=== PATIENT | male | born 1960 | race Caucasian/White ===

== ENCOUNTER → 2022-05-14 10:18 | Outpatient (CLI) | payer OTHER, SELFPAY ==
[2022-05-14 13:01] LABS: COVID19 -Nasal RAPID Negative (Negative)
== END ==
PROVIDERS: Visit Provider Surgery
DX: Z20.822 Contact with and (suspected) exposure to COVID-19 (principal); Z01.812 Encounter for preprocedural laboratory examination
CPT/HCPCS: 87635; C9803

== ENCOUNTER 2022-05-15 06:34 | Day surgery (SDC) | payer OTHER, SELFPAY ==
[2022-05-08 15:08] VITALS: BMI 18.6
[2022-05-15 07:23] VITALS: BP 135/73; PULSE 87; RESP 20; TEMP 36.7; O2SAT 97; BMI 18.6
[2022-05-15] MEDS: LACTATED RINGERS 1,000 ML 42 ML IV (07:39)
--- NOTE | 2022-05-15 07:50 | PM.HP.1 ---
History of Present Illness History of Present Illness Date Patient Seen: 05/15/22 Time Patient Seen: 07:51 Chief complaint: SDC Narrative: Robin Mills is a 62-year-old man who has had a large right inguinal hernia for 7 years. It seems to protrude whenever he stands up and reduces when he lies down. It is bothering him. See the office note from March for details. Patient History Medical History (Updated 05/08/22 @ 15:10 by Eugenie Sutherland RN) Anxiety Asthma Easy bruisability Pneumonia Surgical History (Updated 05/08/22 @ 15:10 by Eugenie Sutherland RN) History of surgical removal of ganglion cyst Hx of hernia repair (1971) Family & Social History Social History: household members spouse Tobacco & Substance use: Tobacco type cigarettes Smoking Status Current every day smoker Smoking packs per day 1 alcohol intake current alcohol intake frequency 3 or more drinks per day Substance Use Type does not use Meds Home Medications and Allergies Home Medications Medication Instructions Recorded Confirmed Type No Known Home Medications 09/18/18 05/15/22 History Allergies Allergy/AdvReac Type Severity Reaction Status Date / Time No Known Drug Allergies Allergy Verified 05/15/22 07:22 Exam Vital Signs (past 8 hours): - 05/15/22 07:23 Temperature 98.1 F Pulse Rate 87 Respiratory Rate 20 Blood Pressure 135/73 Pulse Oximetry 97 Oxygen Delivery Method Room Air Oxygen Delivery Method Room Air Narrative Exam Narrative: Large reducible right inguinal hernia No left inguinal hernia Assessment & Plan Assessment and plan (1) Right inguinal hernia: Status: Acute Plan Proceed with open right inguinal hernia repair with mesh. Time Spent With Patient Critical Care time: I spent a total of [] minutes of critical care time on this patient's care today; this time is exclusive of procedural time.
[2022-05-15] MEDS: CEFAZOLIN 2 GM/20 ML SYRINGE IV (08:08)
[2022-05-15] MEDS: LIDOCAINE 1% W/EPI 20 ML INJ (08:21)
[2022-05-15] MEDS: BUPIVACAINE 0.5% (PF) VIAL 30 ML INJ (08:22)
--- NOTE | 2022-05-15 08:25 | SUR.OPER ---
Supine on padded OR bed, head on pillow, arms secured on padded arm boards at <90 degrees abduction, legs uncrossed, safety belt at thigh, tape over blanket over lower legs. Gel pad placed under bilateral heels.
[2022-05-15 09:28] VITALS: BP 115/63; PULSE 77; RESP 16; TEMP 36.8; O2SAT 98
[2022-05-15 09:32] VITALS: BP 112/72; PULSE 75; RESP 16; TEMP 36.2; O2SAT 98
[2022-05-15] MEDS: OXYCODONE/ACETAMINOPHEN 5/325 TABLET 1 TAB PO (09:35)
--- NOTE | 2022-05-15 09:35 | PM.OP.1 ---
Operative Date/Time/Diagnoses Date of procedure: 05/15/22 Time of procedure: 09:36 Pre-op diagnosis: Right inguinal hernia Post-op diagnosis: same Procedure & Clinicians Procedure: Open right inguinal hernia repair with mesh Same procedure as scheduled: Yes Surgeon: Severiano Herman Anesthesia Type: General Operative Notes Procedure in detail: Preoperative antibiotic was administered. The patient was brought to the operating room and placed on the table in supine position general anesthesia was induced. The right groin was prepped and draped in the normal fashion and a time-out was performed. Roughly 10 mL of local anesthetic were injected into the skin and subcutaneous adipose tissue over the right groin. A 6 cm incision was made over the right inguinal canal. Dissection was carried down through the subcutaneous adipose tissue. A bridging vein was cauterized. We exposed the external oblique aponeurosis in the direction of the fibers. Additional local was injected deep to the aponeurosis. A 15 blade scalpel was used to ernesto the external oblique aponeurosis. Metzenbaum scissors were used to carefully open the aponeurosis in the direction of the fibers taking care not to injure the underlying ilioinguinal nerve which was well seen and protected. We completely exposed the inguinal canal. The cord was dissected free from the inguinal ligament and floor of the inguinal canal and the external oblique aponeurosis was dissected off of the internal oblique taking care not to injure the hypogastric nerve. We encircled the cord with a [place] drain for retraction. There was a large indirect hernia sac which was dissected off of the cord structures. We then fashioned a piece of polypropylene mesh to fit the inguinal canal floor. The mesh was secured with multiple interrupted 3-0 Prolene sutures to the pubic tubercle and shelving edge of the inguinal ligament as well as to the conjoint tendon medially. We overlapped the tails to recreate an internal ring and secured the medial tail to the inguinal ligament with additional sutures. We injected some more local into the fatty tissue in the inguinal canal and cord. Finally, we removed the [place] drain and closed the external oblique fascia with a running 3-0 Vicryl suture. Skin was closed with interrupted 3-0 Vicryl dermal sutures and a running 4 Monocryl subcuticular stitch. EBL 5 mL The patient was awakened and brought to recovery room. Post-operative Condition: stable Disposition: PACU
[2022-05-15 09:40] VITALS: BP 117/65; PULSE 75; RESP 16; O2SAT 97
[2022-05-15 09:42] VITALS: BP 120/65; PULSE 75; RESP 18; TEMP 36.3; O2SAT 98
[2022-05-15 09:48] VITALS: BP 125/69; PULSE 74; RESP 14; TEMP 36.2; O2SAT 98
== END 2022-05-15 10:15 | disposition home or self-care (01) ==
PROVIDERS: Referring Provider Surgery; Visit Provider Surgery
PROC: (CPT 49505; principal; 2022-05-15 07:45)
DX: K40.90 Unilateral inguinal hernia, without obstruction or gangrene, not specified as recurrent (principal); F17.210 Nicotine dependence, cigarettes, uncomplicated
CPT/HCPCS: 49505; J0690; J1100; J1885; J2250; J2405; J2704; J3010

== ENCOUNTER → 2023-08-20 11:02 | Outpatient (CLI) | payer MEDICARE, SELFPAY ==
[2023-08-21 13:36] LABS: Fecal Immunochemical Test Negative (Negative)
== END ==
PROVIDERS: PCP Family Medicine; Referring Provider Family Medicine; Visit Provider Family Medicine
DX: Z00.00 Encounter for general adult medical examination without abnormal findings (principal); Z12.11 Encounter for screening for malignant neoplasm of colon
CPT/HCPCS: 82274

== ENCOUNTER → 2023-08-21 10:24 | Outpatient (CLI) | payer MEDICARE, SELFPAY ==
[2023-08-21 12:28] LABS: Add Manual Diff / Slide Review NO; Basophils Absolute Auto 100 /uL (0-100); Basophils Percent Auto 1.3 % (0-2); Eosinophils Absolute Auto 300 /uL (0-450); Eosinophils Percent Auto 4.7 % (2-4); Hematocrit 43.3 % (41-53); Hemoglobin 14.7 g/dL (13.5-17.5); Lymphocytes Absolute Auto 1900 /uL (1100-4500); Mean Corpuscular HGB Conc 33.9 % (30-36); Mean Corpuscular Hemoglobin 32.4 PG (26-34); Mean Corpuscular Volume 95.7 fL (80-100); Monocytes Absolute Auto 600 /uL (0-900); Neutrophils Absolute Auto 3900 /uL (1500-7000); Platelet Count 267 X10^3/uL (150-400); Red Blood Cell Count 4.53 X10^6/uL (4.5-5.9); White Blood Cell Count 6.9 X10^3/uL (4.5-11.0)
[2023-08-21 12:38] LABS: Hemoglobin A1C% w Est Avg Glu 4.9 % (4.0-6.0)
[2023-08-21 12:46] LABS: Alanine Aminotransferase 13 IU/L (<50); Albumin 4.1 g/dL (3.5-5.0); Albumin Globulin Ratio 1.2 (1.0-2.8); Alkaline Phosphatase 40 U/L (38-126); Aspartate Aminotransferase 25 IU/L (17-59); BUN Creatinine Ratio 13.3 (6-22); Bilirubin Total 0.9 mg/dL (0.2-1.3); Blood Urea Nitrogen 11 mg/dL (9-20); Calcium 9.6 mg/dL (8.4-10.2); Carbon Dioxide 30 mmol/L (22-32); Chloride 103 mmol/L (98-107); Cholesterol 187 mg/dL (140-199); Estimated Glomerular Filt Rate > 60 mL/min (>60); Globulin 3.3 g/dL (1.7-4.1); Glucose 89 mg/dL (80-110); HDL Cholesterol 60 mg/dL (40-60); HEMOLYSIS < 15 (0-50); LDL Cholesterol Calculated 112 mg/dL (<100); Potassium 4.6 mmol/L (3.4-5.1); Sodium 139 mmol/L (137-145); Total Protein 7.4 g/dL (6.3-8.2); Triglycerides 77 mg/dL (35-150)
== END ==
PROVIDERS: PCP Family Medicine; Referring Provider Family Medicine; Visit Provider Family Medicine
DX: F17.200 Nicotine dependence, unspecified, uncomplicated (principal); F41.9 Anxiety disorder, unspecified; Z00.00 Encounter for general adult medical examination without abnormal findings; J45.909 Unspecified asthma, uncomplicated
CPT/HCPCS: 36415; 80053; 80061; 83036; 85025

== ENCOUNTER → 2023-08-27 08:41 | Outpatient (CLI) | payer MEDICARE, SELFPAY ==
--- NOTE | 2023-08-27 08:42 | DI.US.S_ITS ---
PROCEDURE: US ABD AORTA ANEURYSM SCREEN INDICATIONS: HISTORY SMOKING TECHNIQUE: Real-time scanning was performed of the aorta and proximal common iliac arteries, with image documentation. COMPARISON: None. FINDINGS: Aorta: Abdominal aorta is normal in caliber throughout its length. Iliacs: Proximal common iliac arteries are normal in caliber. IMPRESSION: No infrarenal aortic aneurysm. Dictated by: Kiet Oro M.D. on 08/27/2023 at 11:21 Approved by: Kiet Oro M.D. on 08/27/2023 at 11:22
--- NOTE | 2023-08-27 08:42 | DI.CT.S_ITS ---
PROCEDURE: CT LUNG LOW DOSE SCREENING INDICATIONS: lung cancer screening TECHNIQUE: Noncontrast 2.0-2.5 mm thick sections acquired from the pulmonary apices to the posterior costophrenic angles. 7 mm thick axial MIP, and 5 mm coronal and sagittal reformats were then acquired. A low radiation dose technique was utilized. COMPARISON: None. FINDINGS: Image quality: Good Lungs and pleura: Emphysema with particularly large blebs at the apex. Baseline lung cancer screening without suspicious nodule identified. No consolidation or pleural effusion. There are areas of suspected thick scarring at the apices. Subpleural nodularity is also seen in the right upper lobe and micro nodules in the left upper lobe. None measure over 6 mm. Mediastinum, heart, and esophagus: No hiatal hernia. Normal heart size. No pathologic lymph nodes by size criteria. Chest wall and thyroid: Unremarkable Upper abdomen: No gross abnormality on this noncontrast low-dose CT. Bones: There are degenerative changes. IMPRESSION: Lung RADS 2: Continue annual screening. Other findings as above. Dictated by: Butch Loera M.D. on 08/27/2023 at 9:04 Approved by: Butch Loera M.D. on 08/27/2023 at 9:08
== END ==
PROVIDERS: PCP Family Medicine; Referring Provider Family Medicine; Visit Provider Family Medicine
DX: F17.200 Nicotine dependence, unspecified, uncomplicated (principal); J45.909 Unspecified asthma, uncomplicated; Z12.2 Encounter for screening for malignant neoplasm of respiratory organs; F17.210 Nicotine dependence, cigarettes, uncomplicated
CPT/HCPCS: 71271; 76706

== ENCOUNTER → 2024-10-01 11:37 | Outpatient (CLI) | payer MEDICARE, SELFPAY ==
[2024-10-02 11:11] LABS: Fecal Immunochemical Test Negative (Negative)
== END ==
PROVIDERS: PCP Family Medicine; Referring Provider Specialist; Visit Provider Specialist
DX: Z12.11 Encounter for screening for malignant neoplasm of colon (principal)
CPT/HCPCS: 82274

== ENCOUNTER → 2024-10-05 09:14 | Outpatient (CLI) | payer MEDICARE, SELFPAY ==
--- NOTE | 2024-10-05 09:15 | DI.CT.S_ITS ---
PROCEDURE: CT LUNG LOW DOSE SCREENING INDICATIONS: 50 pack-year smoking hx TECHNIQUE: Noncontrast 2.0-2.5 mm thick sections acquired from the pulmonary apices to the posterior costophrenic angles. 7 mm thick axial MIP, and 5 mm coronal and sagittal reformats were then acquired. For radiation dose reduction, the following was used: automated exposure control, adjustment of mA and/or kV according to patient size. COMPARISON: [facility], CT, CT LUNG LOW DOSE SCREENING, 08/27/2023, 8:46. FINDINGS: Image quality: Diagnostic Lungs and pleura: Emphysematous changes, with large bulla at the apices. No suspicious pulmonary nodules. Small Bochdalek's hernias. No pleural effusions. Scattered scarring at the apices also again seen similar to prior. Similar left lung apex nodule image 40 about 4 mm. Mediastinum, heart, and esophagus: No hiatal hernia. Normal heart size. No pathologic lymph nodes by size criteria. Chest wall and thyroid: Unremarkable Upper abdomen: Unremarkable on these noncontrast low-dose images. A subcentimeter lesion at the segment 7 of the liver is similar to prior, too small to characterize. Bones: Degenerative osseous changes. No acute or suspicious osseous finding. IMPRESSION: No suspicious pulmonary nodules. LUNG-RADS 2; continued annual screening, if eligible. Other findings above. Dictated by: Butch Loera M.D. on 10/05/2024 at 16:49 Approved by: Butch Loera M.D. on 10/05/2024 at 16:52
[2024-10-05 10:13] LABS: Add Manual Diff / Slide Review NO; Basophils Absolute Auto 200 /uL (0-100); Basophils Percent Auto 2.6 % (0-2); Eosinophils Absolute Auto 200 /uL (0-450); Hematocrit 45.5 % (41-53); Hemoglobin 15.4 g/dL (13.5-17.5); Lymphocytes Absolute Auto 2000 /uL (1100-4500); Lymphocytes Percent Auto 31.3 % (25-40); Mean Corpuscular HGB Conc 33.9 % (30-36); Mean Corpuscular Hemoglobin 32.5 PG (26-34); Mean Corpuscular Volume 96.1 fL (80-100); Monocytes Absolute Auto 600 /uL (0-900); Monocytes Percent Auto 9.7 % (3-14); Neutrophils Absolute Auto 3400 /uL (1500-7000); Neutrophils Percent Auto 53.4 % (50-75); Platelet Count 299 X10^3/uL (150-400); Red Blood Cell Count 4.74 X10^6/uL (4.5-5.9); Red Cell Distribution Width 13.8 % (11.6-14.8); White Blood Cell Count 6.3 X10^3/uL (4.5-11.0)
[2024-10-05 10:34] LABS: Alanine Aminotransferase 15 IU/L (<50); Albumin 4.3 g/dL (3.5-5.0); Albumin Globulin Ratio 1.4 (1.0-2.8); Alkaline Phosphatase 43 U/L (38-126); Aspartate Aminotransferase 29 IU/L (17-59); BUN Creatinine Ratio 11.2 (6-22); Bilirubin Total 0.8 mg/dL (0.2-1.3); Blood Urea Nitrogen 10 mg/dL (9-20); Calcium 9.9 mg/dL (8.4-10.2); Carbon Dioxide 30 mmol/L (22-32); Chloride 103 mmol/L (98-107); Cholesterol 186 mg/dL (140-199); Estimated Glomerular Filt Rate > 60 mL/min (>60); Glucose 92 mg/dL (80-110); HDL Cholesterol 72 mg/dL (40-60); HEMOLYSIS < 15 (0-50); LDL Cholesterol Calculated 98 mg/dL (<100); Potassium 4.8 mmol/L (3.4-5.1); Sodium 140 mmol/L (137-145); Total Protein 7.3 g/dL (6.3-8.2); Triglycerides 78 mg/dL (35-150)
[2024-10-05 11:05] LABS: Prostate Specific Antigen Scrn 10.2 ng/mL (0.1-4.0)
[2024-10-05 16:11] LABS: Hep C Virus Ab w/Reflex Quant NEGATIVE s/c (NEGATIVE)
== END ==
LOC: CT 09:14
PROVIDERS: PCP Family Medicine; Referring Provider Family Medicine; Visit Provider Family Medicine
DX: Z12.5 Encounter for screening for malignant neoplasm of prostate (principal); Z13.228 Encounter for screening for other metabolic disorders; Z13.220 Encounter for screening for lipoid disorders; Z11.59 Encounter for screening for other viral diseases; J43.9 Emphysema, unspecified; F17.210 Nicotine dependence, cigarettes, uncomplicated
CPT/HCPCS: 36415; 71271; 80053; 80061; 85025; 86803; G0103

== ENCOUNTER → 2024-11-25 10:21 | Outpatient (CLI) | payer MEDICARE, SELFPAY ==
[2024-11-25 13:24] LABS: Prostate Specific Antigen Scrn 12.5 ng/mL (0.1-4.0)
== END ==
PROVIDERS: PCP Family Medicine; Referring Provider Family Medicine; Visit Provider Family Medicine
DX: R97.20 Elevated prostate specific antigen [PSA] (principal)
CPT/HCPCS: 36415; G0103

== ENCOUNTER → 2024-12-25 10:42 | Outpatient (CLI) | payer MEDICARE, SELFPAY ==
--- NOTE | 2024-12-25 10:43 | DI.MRI.S_ITS ---
PROCEDURE: MR PELIS WO/W CON INDICATIONS: 64 y/o M w/ elevated PSA, please eval TECHNIQUE: Coronal HASTE, axial T1 FSE with fat saturation, 3-plane nonbreath-hold T2 FSE. After the administration of contrast, dynamic axial, delayed axial and coronal VIBE or 2-D FLASH with fat saturation through the pelvis. Diffusion weighted imaging and ADC was performed. COMPARISON: None. FINDINGS: Image quality: Diffusion weighted and dynamic contrast enhanced images are diagnostic. Prostate: Gland size is 5.3 x 3.3 x 3.8 cm; ellipsoid gland volume is 34 mL. Lesion 1: Location: Right lateral peripheral zone, base, on axial series 4, image 12 and sagittal series 6, image 8. Size: 0.5 x 0.5 cm. T2W signal: Hypointense. DWI signal: Markedly hyperintense. ADC signal: Markedly hypointense. Enhancement: Yes. Extracapsular extension: No. No neurovascular involvement. PI-RADS score: 4 Genitourinary system: Trabeculated bladder wall. Bowel and peritoneum: No pathologic free pelvic fluid. Inferior colon and small bowel loops are normal in caliber. Nodes and vessels: No pelvic or inguinal adenopathy by size criteria. Iliac vessels are normal in caliber. Soft tissues: No inguinal hernias. Bones: Marrow demonstrates normal overall signal, without lesions to suggest metastases. IMPRESSION: PI-RADS 4 lesion, as above. No extraprostatic extension. No pelvic lymphadenopathy by size criteria. No aggressive osseous abnormality. Dictated by: Kiet Oro M.D. on 12/25/2024 at 12:13 Approved by: Kiet Oro M.D. on 12/25/2024 at 12:18
== END ==
PROVIDERS: PCP Family Medicine; Referring Provider Urology; Visit Provider Urology
DX: N42.9 Disorder of prostate, unspecified (principal); R97.20 Elevated prostate specific antigen [PSA]; N32.89 Other specified disorders of bladder
CPT/HCPCS: 72197; A9579

== ENCOUNTER 2025-07-23 08:10 | Day surgery (SDC) | payer MEDICARE, SELFPAY ==
[2025-07-16 10:28] VITALS: BMI 18.8
[2025-07-23 08:32] VITALS: BP 153/77; PULSE 72; RESP 16; TEMP 36.9; O2SAT 98; BMI 18.8
[2025-07-23] MEDS: LACTATED RINGERS 1,000 ML 42 ML IV (08:42)
[2025-07-23] MEDS: ACETAMINOPHEN 325 MG TABLET 975 MG PO (08:45)
--- NOTE | 2025-07-23 09:21 | PM.PREOP ---
Pre-operative Note COVID-19 COVID-19 status: Not tested Interval Note History & Physical reviewed/Exam performed by Physician: Yes Changes to H&P: No
--- NOTE | 2025-07-23 09:29 | SUR.OPER ---
Pt positioned on left lateral side on padded gurney, covered with warm blankets.
[2025-07-23] MEDS: LIDOCAINE 1% 20 ML INJ (09:32)
--- NOTE | 2025-07-23 09:49 | PM.OP.1 ---
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 Discussed that per AUA guidelines, recommended treatment options include XRT w/ likely short course of ADT vs a radical prostatectomy. Active surveillance would not be recommended given the fact he has unfavorable intermediate-risk prostate cancer (despite the fact that only 1/15 cores were positive for [place] 3+4=7 prostate adenocarcinoma and 10% of that core was positive for cancer) secondary only to his PSA of 12.5. Discussed in detail that active surveillance currently entails: serial PSA/ADALBERTO every 6 months, confirmatory biopsy within 12-18 months of original diagnosis, prostate MRI and a repeat prostate biopsy alternating every 18 months thereafter. If any of the aforementioned pieces of evaluation (PSA, ADALBERTO, prostate MRI) are concerning, then a repeat prostate biopsy would come at an earlier interval. He has since met with Dr. Adams with [facility] and is interested in moving forward with XRT. He will not require a short course of ADT. Discussed the GSM placement procedure in detail today. Discussed the risks of the procedure to include but not limited to pain, bleeding, infection, blood in the stool for several weeks, blood and/or blood clots within the urine for several weeks as well as bloody ejaculate for several months. Up to 1-2% of men may get an infection from their biopsy that is severe enough that they require admission to the hospital and administration of IV antibiotics. To mitigate this risk, he will use a bowel prep the night before and the morning of the procedure as well as take an antibiotic the morning before, the morning of and the morning after his biopsy. He will be scheduled for this procedure under anesthesia, per his preference, his informed consent was obtained this morning. Surgeon: Artem Caraballo Click Yes if Unassisted: Yes Anesthesia Type: MAC +/- Operative Notes Findings: 35g prostate Closure Type: not applicable Specimen(s): none sent Applied: none Estimated Blood Loss (mL): 2 Blood products transfused: none Procedure in detail: Transrectal Ultrasound of the Prostate with Gold Seed Marker Placement: [id number] Indication: 65 y/o M w/ unfavorable intermediate-risk prostate cancer who returns today for his Gold Seed Marker placement. Following informed consent and induction of MAC anesthesia, he was transitioned into the left lateral decubitus position. The ultrasound probe was then coated in lubrication and gently inserted into his rectum. A total of 10cc of 1% Lidocaine was used for local anesthetic throughout the procedure. Transrectal US images of his prostate were then performed. A Gold Seed Marker was then placed in the right base of his gland, the left mid of his gland and the right apex of his gland. Hemostasis was evaluated at the end of the procedure and noted to be excellent. He tolerated the procedure well without any complications and the ultrasound probe was gently removed from his rectum. Anesthesia was reversed, he was transported to the PACU in stable condition for recovery. Complications: none Post-operative Condition: stable Disposition: PACU Plan for aftercare: Discharge home from PACU.
[2025-07-23 09:50] VITALS: BP 128/60; PULSE 57; RESP 16; TEMP 36.9; O2SAT 100
[2025-07-23 09:58] VITALS: BP 139/69; PULSE 57; RESP 20; TEMP 36.9; O2SAT 99
[2025-07-23 10:17] VITALS: BP 145/69; PULSE 65; RESP 15; TEMP 36.6; O2SAT 98
[2025-07-23 11:53] VITALS: BP 151/73; PULSE 62; RESP 16; TEMP 36.9; O2SAT 97
== END 2025-07-23 11:56 | disposition home or self-care (01) ==
PROVIDERS: PCP Family Medicine; Referring Provider Family Medicine; Visit Provider Urology
PROC: 0VJ43ZZ Inspection of Prostate and Seminal Vesicles, Percutaneous Approach (ICD-10-PCS; CPT 55876; principal; 2025-07-23 09:45)
DX: C61 Malignant neoplasm of prostate (principal); F17.210 Nicotine dependence, cigarettes, uncomplicated; F19.11 Other psychoactive substance abuse, in remission
CPT/HCPCS: 55876; 76872; 76942; A4648; J1100; J1956; J2405; J2704; J3010

== ENCOUNTER → 2025-08-27 07:52 | Outpatient (CLI) | payer MEDICARE, SELFPAY ==
--- NOTE | 2025-08-27 07:54 | DI.MRI.S_ITS ---
PROCEDURE: MR PELVIS WO CON INDICATIONS: Malignant neoplasm of prostate TECHNIQUE: Non-contrast axial GRE acquired from the top of the seminal vesicles through the base of the penis, centered on the prostate gland. COMPARISON: None. FINDINGS: Image quality: Excellent. Enlarged prostate gland with three fiducial markers in place. Bilateral inguinal lymph nodes are borderline prominent. IMPRESSION: MR imaging of the prostate for radiation treatment protocol. Dictated by: Zahida Salgado M.D. on 08/27/2025 at 15:50 Approved by: Zahida Salgado M.D. on 08/27/2025 at 15:51
== END ==
PROVIDERS: PCP Family Medicine; Referring Provider Family Medicine; Visit Provider Radiology Radiation Oncology
DX: C61 Malignant neoplasm of prostate (principal)
CPT/HCPCS: 72195